=== PATIENT | male | born 1995 | race Caucasian/White ===

== ENCOUNTER 2018-01-19 13:50 | Emergency (ER) | payer SELFPAY ==
[2018-01-19 13:51] VITALS: BMI 27.3
[2018-01-19 14:06] VITALS: BP 125/83; PULSE 80; RESP 20; TEMP 98.4; O2SAT 99
--- NOTE | 2018-01-19 14:40 | C.PDOC ---
History Of Present Illness 22 y/o male presents to the ED with c/o left chest wall pain x 4 days. Patient states pain is localized and worse with movement, deep breathing, and cough. Denies dyspnea on exertion, shortness of breath, or any other associated symptoms. L CHEST WALL PAIN X 4 DAYS. LOCALIZED WORSE W MOVEMENT, DEEP BREATH, COUGH. NO DUMONT, SOB, OTHER ASSOC SX EXAM NARD NO CHEST WALL TEND CTA B/L NO W/R/R CV RRR REMAINDER NEG Time Seen by Provider: 01/19/18 14:24 Chief Complaint (Nursing): Chest Pain History Per: Patient History/Exam Limitations: no limitations Onset/Duration Of Symptoms: Days (4) Current Symptoms Are (Timing): Still Present Additional History Per: Patient Past Medical History Reviewed: Historical Data, Nursing Documentation, Vital Signs Vital Signs: Last Vital Signs Temp 98.4 F 01/19/18 14:05 Pulse 80 01/19/18 14:05 Resp 20 01/19/18 15:03 BP 125/83 01/19/18 14:05 Pulse Ox 99 01/19/18 14:40 - Medical History PMH: No Chronic Diseases Surgical History: No Surg Hx Family History: States: Unknown Family Hx - Social History Hx Tobacco Use: No Hx Alcohol Use: No Hx Substance Use: No - Immunization History Hx Tetanus Toxoid Vaccination: Yes Hx Influenza Vaccination: No Hx Pneumococcal Vaccination: No Review Of Systems Cardiovascular: Positive for: Chest Pain (left chest wall ) Respiratory: Negative for: Shortness of Breath, SOB with Excertion Physical Exam - Physical Exam Appears: Non-toxic, Other (no acute respiratory distress ) Skin: Normal Color, Warm, Dry Head: Atraumatic, Normacephalic Eye(s): bilateral: Normal Inspection Oral Mucosa: Moist Neck: Supple Chest: Symmetrical, No Deformity, No Tenderness Cardiovascular: Rhythm Regular, No Murmur Respiratory: Normal Breath Sounds, No Rales, No Rhonchi, No Wheezing Extremity: Normal ROM, Capillary Refill (less than 2 seconds ) Neurological/Psych: Oriented x3, Normal Speech, Normal Cognition Gait: Steady ED Course And Treatment ECG: Interpreted By Me ECG Rhythm: Sinus Rhythm Rate From EC O2 Sat by Pulse Oximetry: 99 (on RA) Pulse Ox Interpretation: Normal - Radiology CXR: Interpreted by Me CXR Interpretation: Yes: No Acute Disease Progress Note: CXR and EKG ordered. Motrin PO administered. Disposition Counseled Patient/Family Regarding: Studies Performed, Diagnosis, Need For Followup, Rx Given - Disposition Referrals: [facility] [Outside] [facility] [Outside] Disposition: HOME/ ROUTINE Disposition Time: 14:39 Condition: IMPROVED Prescriptions: Ibuprofen [Motrin] 600 mg PO Q6 #30 tab Instructions: Chest Pain That Is Not Caused by the Heart (DC) Forms: [employer] (French) Print Language: ROMANIAN - Clinical Impression Clinical Impression: Chest wall pain - Scribe Statement The provider has reviewed the documentation as recorded by the Scribe (Isa Holloway) Provider Attestation: All medical record entries made by the Scribe were at my direction and personally dictated by me. I have reviewed the chart and agree that the record accurately reflects my personal performance of the history, physical exam, medical decision making, and the department course for this patient. I have also personally directed, reviewed, and agree with the discharge instructions and disposition.
--- NOTE | 2018-01-19 15:52 | RAD ---
Chest x-ray two views History: Chest pain. Comparison: None available. Findings No focal infiltrate or effusion. Heart size within normal limits. Impression: No focal infiltrate or effusion.
== END 2018-01-19 15:03 | disposition home or self-care (01) ==
LOC: C.ER 13:50
DX: R07.89 Other chest pain (principal)

== ENCOUNTER 2018-02-09 11:36 | Emergency (ER) | payer SELFPAY ==
[2018-02-09 11:37] VITALS: BMI 27.3
--- NOTE | 2018-02-09 12:36 | C.PDOC ---
History Of Present Illness 22 y/o male c/o subjective fever, chills, headache, and cough w/throat pain x 4 days. Pt states that he was constipated for 2-3 days but he had a bowel movement in the morning today.Denies abdominal pain,n/v/d.Pt has a brother at home with similar sx. Time Seen by Provider: 02/09/18 11:39 Chief Complaint (Nursing): Fever History Per: Patient History/Exam Limitations: no limitations Onset/Duration Of Symptoms: Days Severity: Moderate Past Medical History Reviewed: Historical Data, Nursing Documentation, Vital Signs Vital Signs: Last Vital Signs Temp 99.3 F 02/09/18 13:48 Pulse 80 02/09/18 13:48 Resp 17 02/09/18 13:48 BP 104/78 02/09/18 13:48 Pulse Ox 98 02/09/18 21:09 - Medical History PMH: No Chronic Diseases Surgical History: No Surg Hx Family History: States: No Known Family Hx - Social History Hx Tobacco Use: No Hx Alcohol Use: No Hx Substance Use: No - Immunization History Hx Tetanus Toxoid Vaccination: Yes Hx Influenza Vaccination: Yes (10/2017) Hx Pneumococcal Vaccination: No Review Of Systems Constitutional: Positive for: Fever (subjective fever), Chills ENT: Positive for: Throat Pain Respiratory: Positive for: Cough Gastrointestinal: Negative for: Nausea, Vomiting, Diarrhea Neurological: Positive for: Headache Physical Exam - Physical Exam Appears: Non-toxic, No Acute Distress Skin: Warm, Dry Head: Atraumatic, Normacephalic Eye(s): bilateral: Normal Inspection Ear(s): Bilateral: Normal Throat: Erythema (mildly erythematous to posterior aspect of throat) Neck: Supple (no meningeal signs) Cardiovascular: Rhythm Regular, No Murmur Respiratory: No Decreased Breath Sounds, No Accessory Muscle Use, No Rales, No Rhonchi, No Wheezing Gastrointestinal/Abdominal: Soft, No Tenderness Neurological/Psych: Oriented x3, Normal Speech, Normal Motor, Normal Sensation ED Course And Treatment O2 Sat by Pulse Oximetry: 98 (RA) Pulse Ox Interpretation: Normal Medical Decision Making Medical Decision Making: Plan: --Rapid Strep --Toradol IM Updates: On re-evaluation, patient's headache has resolved. appears well. will d/c home. Disposition Counseled Patient/Family Regarding: Studies Performed, Diagnosis, Need For Followup, Rx Given - Disposition Referrals: [facility] [Outside] Disposition: HOME/ ROUTINE Disposition Time: 14:07 Condition: IMPROVED Additional Instructions: Por favor tome Tylenol o Motrin para el dolor si es necesario. [place] Tamiflu seg n lo prescrito. Romy un seguimiento en la clnica mdica en unos kincaid. Prescriptions: Oseltamivir Phosphate [Tamiflu] 75 mg PO BID #10 capsule Instructions: Flu, Adult (DC) Forms: [employer] (Sami), Gen Discharge Inst Syrian, [employer] (Syrian) Print Language: FAROESE - Clinical Impression Clinical Impression: Influenza-like illness - PA / LOCATION AND MEASUREMENT TECHNICIAN / Resident Statement MD/DO has reviewed & agrees with the documentation as recorded. - Scribe Statement The provider has reviewed the documentation as recorded by the Scribe Mimi Lawler Provider Attestation All medical record entries made by the Scribe were at my direction and personally dictated by me. I have reviewed the chart and agree that the record accurately reflects my personal performance of the history, physical exam, medical decision making, and the department course for this patient. I have also personally directed, reviewed, and agree with the discharge instructions and disposition.
[2018-02-09 13:48] VITALS: BP 104/78; PULSE 80; RESP 17; TEMP 99.3
[2018-02-09 14:06] VITALS: O2SAT 98
== END 2018-02-09 14:17 | disposition home or self-care (01) ==
LOC: C.ER 11:36
DX: J11.1 Influenza due to unidentified influenza virus with other respiratory manifestations (principal)
CPT/HCPCS: 87070; 87430; 94770; 96372; 99285; J1885